=== PATIENT | male | born 1930 | race Caucasian/White ===

== ENCOUNTER 2019-01-21 21:52 | Emergency (ER) | payer MEDICARE ==
[~2019-01-21] VITALS: Ht 188 cm; Wt 87.5 kg
[~2019-01-21 21:52] MED LIST: ALPR1TAB6 PO; GABA-585 PO; HYDR-3164 PO; LORA-781 PO; NAPR-514 PO; NORT25CA PO; PARO30TA3 PO; PRIM50TA PO; TAMS0.4C2 PO
--- NOTE | 2019-01-21 22:30 | PHYS DOC ---
Past Medical History Past Medical History: Anxiety, Arthritis, Constipation, Depression, Hypertension, Other Additional Past Medical Histor: CHRONIC PAIN, ATRIAL FLUTTER, INSOMNIA Past Surgical History: Knee Replacement, Other Additional Past Surgical Histo: BILATERAL SHOULDER, R FEMUR Alcohol Use: None Drug Use: None Adult General Chief Complaint Chief Complaint: MECHANICAL FALL HPI HPI Patient is an 88 year old male with a history of 4 mechanical falls resulting in fractures in the past 4-5 months, who presents to the ED after feeling a pop in his hip earlier today after standing from a seated position with subsequent sharp hip pain. He reports falling backward on to his buttocks/back one week ago , but has been ambulatory since then. He denies any head trauma or LOC from this fall. His pain is currently a 4/10 in severity and does not radiate. He describes it as a sharp, stinging pain. He denies any sensory or motor deficits. He uses a walker to ambulate. He denies any nausea, vomiting, fever, or chills. Review of Systems Review of Systems Constitutional: Denies fever or chills [] Eyes: Denies change in visual acuity, redness, or eye pain [] HENT: Denies nasal congestion or sore throat [] Respiratory: Denies cough or shortness of breath [] Cardiovascular: Denies any chest pain or palpitations. [] GI: Denies abdominal pain, nausea, vomiting, or diarrhea [] : Reports Burning on urination for about a month. Denies Hematuria. [] Musculoskeletal: Right Hip Pain. [] Integument: Denies rash or skin lesions [] Neurologic: Denies headache, focal weakness or sensory changes [] Complete systems were reviewed and found to be within normal limits, except as documented in this note. Current Medications Current Medications Current Medications Medications (Trade) Dose Ordered Sig/Awilda Start Time Stop Time Status Last Admin Dose Admin Cyclobenzaprine HCl (Flexeril) 10 mg 1X ONCE 01/21/19 23:45 01/21/19 23:46 DC 01/21/19 23:49 10 MG Allergies Allergies Allergies Coded Allergies Type Severity Reaction Last Updated Verified pregabalin Allergy Intermediate 04/21/16 Yes Physical Exam Physical Exam Constitutional: no acute distress, non-toxic appearance. [] HENT: Normocephalic, atraumatic, bilateral external ears normal, oropharynx moist, no oral exudates, nose normal. [] Eyes: Conjunctiva normal, no discharge. [] Neck: Normal range of motion, no tenderness, supple, no stridor. [] Cardiovascular: Heart rate regular rhythm, no murmur [] Lungs & Thorax: Bilateral breath sounds clear to auscultation [] Abdomen: soft, no tenderness, no masses, no pulsatile masses. [] Skin: Warm, dry, no erythema, no rash. [] Extremities: Mild TTP of Right Hip, no cyanosis, no edema. [] Neurologic: Alert and oriented X 3, normal motor function, normal sensory function, no focal deficits noted. [] Psychologic: Affect normal, judgement normal, mood normal. [] Current Patient Data Vital Signs Vital Signs Date Time Temp Pulse Resp B/P (MAP) Pulse Ox O2 Delivery O2 Flow Rate FiO2 01/21/19 23:53 71 18 95 01/21/19 21:52 97.4 139/77 (97) Room Air 97.4 Lab Values Laboratory Tests Test 01/21/19 23:00 White Blood Count 4.6 x10^3/uL (4.0-11.0) Red Blood Count 4.13 x10^6/uL (4.30-5.70) L Hemoglobin 13.2 g/dL (13.0-17.5) Hematocrit 40.1 % (39.0-53.0) Mean Corpuscular Volume 97 fL (79-100) Mean Corpuscular Hemoglobin 32 pg (25-35) Mean Corpuscular Hemoglobin Concent 33 g/dL (31-37) Red Cell Distribution Width 15.6 % (11.5-14.5) H Platelet Count 173 x10^3/uL (140-400) Neutrophils (%) (Auto) 39 % (31-73) Lymphocytes (%) (Auto) 45 % (24-48) Monocytes (%) (Auto) 11 % (0-9) H Eosinophils (%) (Auto) 5 % (0-3) H Basophils (%) (Auto) 1 % (0-3) Neutrophils # (Auto) 1.8 x10^3uL (1.8-7.7) Lymphocytes # (Auto) 2.1 x10^3/uL (1.0-4.8) Monocytes # (Auto) 0.5 x10^3/uL (0.0-1.1) Eosinophils # (Auto) 0.2 x10^3/uL (0.0-0.7) Basophils # (Auto) 0.0 x10^3/uL (0.0-0.2) Prothrombin Time 13.3 SEC (11.7-14.0) Prothrombin Time INR 1.0 (0.8-1.1) PTT 29 SEC (24-38) Sodium Level 141 mmol/L (136-145) Potassium Level 3.7 mmol/L (3.5-5.1) Chloride Level 105 mmol/L (98-107) Carbon Dioxide Level 25 mmol/L (21-32) Anion Gap 11 (6-14) Blood Urea Nitrogen 17 mg/dL (8-26) Creatinine 1.1 mg/dL (0.7-1.3) Estimated GFR (Cockcroft-Gault) 63.5 BUN/Creatinine Ratio 15 (6-20) Glucose Level 78 mg/dL (70-99) Calcium Level 8.1 mg/dL (8.5-10.1) L Magnesium Level 1.7 mg/dL (1.8-2.4) L Total Bilirubin 0.2 mg/dL (0.2-1.0) Aspartate Amino Transferase (AST) 23 U/L (15-37) Alanine Aminotransferase (ALT) 15 U/L (16-63) L Alkaline Phosphatase 175 U/L (46-116) H Creatine Kinase 57 U/L (39-308) Creatine Kinase MB (Mass) 1.3 ng/mL (0.0-3.6) Creatine Kinase MB Relative Index % (0-4) Troponin I Quantitative < 0.017 ng/mL (0.000-0.055) Total Protein 6.2 g/dL (6.4-8.2) L Albumin 3.0 g/dL (3.4-5.0) L Albumin/Globulin Ratio 0.9 (1.0-1.7) L Laboratory Tests 01/21/19 23:00 Laboratory Tests 01/21/19 23:00 EKG EKG @2234 NSR at 72bpm, NO ST elevation, Q wave in III Radiology/Procedures Radiology/Procedures PROCEDURE: CHEST AP ONLY EXAM: Chest, single view. HISTORY: Shortness of breath. COMPARISON: 04/21/2016 FINDINGS: A frontal view of the chest is obtained. There is no infiltrate, pleural effusion or pneumothorax. The heart is normal in size. There are multiple healed rib fractures. There are fixation screws within the right scapula. There are few small bone islands. There is a chronic nonunited fracture involving the distal left clavicle. There is cervical spinal fusion instrumentation. There are calcified granulomas. IMPRESSION: No acute pulmonary finding. Electronically signed by: Kelly Gar MD (01/21/2019 10:55 PM) [facility] PROCEDURE: HIP RIGHT 2V WITH PELVIS EXAM: Right hip and pelvis, 3 views. HISTORY: Fall. Pain. COMPARISON: 11/29/2018 FINDINGS: A frontal view the pelvis and 2 views of the right hip are obtained. There is internal fixation of a right femoral intertrochanteric fracture. There is a chronic mild displaced fracture fragment involving the right iliac bone. No new fracture is seen. There is mild left greater than right hip osteoarthritis. There is degenerative change at the lower lumbar levels. IMPRESSION: 1. Internal fixation of a proximal right femoral fracture in anatomic alignment. 2. No significant change in a displaced fracture fragment involving the right iliac bone. 3. Mild bilateral hip osteoarthritis and degenerative change involving the lower lumbar spine. Electronically signed by: Kelly Gar MD (01/21/2019 10:56 PM) [facility] Course & Med Decision Making Course & Med Decision Making Mr. Maldonado is an 88 yo male who presents 1 week after a mechanical fall with hip pain and a popping sensation felt today. XR demonstrates an internally fixated proximal femur fracture, along with a non-displaced, old iliac spine fragment. Patient was administered Flexeril. 12-lead EKG showed no acute changes and initial troponin was normal. All other routine labs were not concerning. Surgical intervention was determined to be unnecessary. Patient stable for discharge with outpatient follow-up with PCP. Discussed findings and plan with patient and family, who acknowledge understanding and agreement. Dragon Disclaimer Dragon Disclaimer This electronic medical record was generated, in whole or in part, using a voice recognition dictation system. Departure Departure Impression: Primary Impression: Fall Additional Impressions: Right hip pain Hx of fracture of pelvis Disposition: 01 HOME, SELF-CARE (back to rehab facility) Condition: STABLE Referrals: FLACO GRACE MD (PCP) FANNY RAMOS MD Patient Instructions: Fall Prevention in Hospitals, Hip Pain Scripts Orphenadrine Citrate (ORPHENADRINE CITRATE) 100 Mg Tablet.er 1 TAB PO BID PRN for MUSCLE PAIN, #14 TAB 0 Refills Prov: KRISTINA LUU DO 01/22/19 Problem Qualifiers Primary Impression: Fall Encounter type: initial encounter Qualified Codes: W19.XXXA - Unspecified fall, initial encounter KRISTINA LUU DO Jan 21, 2019 22:30
--- NOTE | 2019-01-21 22:58 | RAD ---
EXAM: Chest, single view. HISTORY: Shortness of breath. COMPARISON: 04/21/2016 FINDINGS: A frontal view of the chest is obtained. There is no infiltrate, pleural effusion or pneumothorax. The heart is normal in size. There are multiple healed rib fractures. There are fixation screws within the right scapula. There are few small bone islands. There is a chronic nonunited fracture involving the distal left clavicle. There is cervical spinal fusion instrumentation. There are calcified granulomas. IMPRESSION: No acute pulmonary finding. Electronically signed by: Kelly Gar MD (01/21/2019 10:55 PM) [facility]
--- NOTE | 2019-01-21 22:59 | RAD ---
EXAM: Right hip and pelvis, 3 views. HISTORY: Fall. Pain. COMPARISON: 11/29/2018 FINDINGS: A frontal view the pelvis and 2 views of the right hip are obtained. There is internal fixation of a right femoral intertrochanteric fracture. There is a chronic mild displaced fracture fragment involving the right iliac bone. No new fracture is seen. There is mild left greater than right hip osteoarthritis. There is degenerative change at the lower lumbar levels. IMPRESSION: 1. Internal fixation of a proximal right femoral fracture in anatomic alignment. 2. No significant change in a displaced fracture fragment involving the right iliac bone. 3. Mild bilateral hip osteoarthritis and degenerative change involving the lower lumbar spine. Electronically signed by: Kelly Gar MD (01/21/2019 10:56 PM) [facility]
[2019-01-21 23:09] LABS: BASO % 1 % (0-3); EOS # 0.2 x10^3/uL (0.0-0.7); EOS % 5 % (0-3); HEMATOCRIT 40.1 % (39.0-53.0); HEMOGLOBIN 13.2 g/dL (13.0-17.5); LYMPH # 2.1 x10^3/uL (1.0-4.8); LYMPH % 45 % (24-48); MEAN CORPUSCULAR HEMOGLOBIN 32 pg (25-35); MEAN CORPUSCULAR HGB CONC 33 g/dL (31-37); MEAN CORPUSCULAR VOLUME 97 fL (79-100); MONO # 0.5 x10^3/uL (0.0-1.1); MONO % 11 % (0-9); NEUT # 1.8 x10^3uL (1.8-7.7); NEUT % 39 % (31-73); PLATELET COUNT 173 x10^3/uL (140-400); RED BLOOD COUNT 4.13 x10^6/uL (4.30-5.70); RED CELL DISTRIBUTION WIDTH 15.6 % (11.5-14.5); WHITE BLOOD COUNT 4.6 x10^3/uL (4.0-11.0)
[2019-01-21 23:19] LABS: PROTHROMBIN TIME PATIENT 13.3 SEC (11.7-14.0)
[2019-01-21 23:27] LABS: CALCIUM 8.1 mg/dL (8.5-10.1); CREATININE 1.1 mg/dL (0.7-1.3); GFR 63.5; POTASSIUM 3.7 mmol/L (3.5-5.1)
[2019-01-21 23:33] LABS: ALBUMIN/GLOBULIN RATIO 0.9 (1.0-1.7); MAGNESIUM 1.7 mg/dL (1.8-2.4); TOTAL BILIRUBIN 0.2 mg/dL (0.2-1.0); TOTAL PROTEIN 6.2 g/dL (6.4-8.2)
[2019-01-21 23:41] LABS: CREATINE KINASE 57 U/L (39-308)
[2019-01-21] MEDS ORDERED: CYCLOBENZAPRINE 10 MG TABLET. PO ONE (23:45)
[2019-01-21 23:53] VITALS: BP 139/60
[2019-01-22] MEDS ORDERED: ORPH100T PO (00:03)
--- NOTE | 2019-01-22 10:50 | EKG ---
[facility] [address] [place] [address] Test Date: 2019-01-21 Test Time: 22:34:48 Pat Name: RANJITH HAUSER Department: Room: Gender: M Transcription Coordinator: : 1930 Requested By: KRISTINA LUU Order Number: [id number] Reading MD: Daniel So MD Measurements Intervals [place] Rate: 72 P: 90 W[place]: 232 QRS: 26 QRSD: 88 T: 38 QT: 398 QTc: 437 Interpretive Statements SINUS RHYTHM PROLONGED WY INTERVAL ANTEROSEPTAL INFARCT Electronically Signed On 01-25-2019 10:15:40 COACH OPERATOR by Daniel So MD
[2019-01-28] MEDS ORDERED: ALPR0.5T PO (18:15)
[2019-01-28] MEDS ORDERED: HYDR-2769 PO (18:16)
[2019-01-28] MEDS ORDERED: ALBU2.5V8 INH (18:32)
[2019-01-28] MEDS ORDERED: ASPI-630 PO (18:32)
[2019-01-28] MEDS ORDERED: CHOL10003 PO (18:33)
[2019-01-28] MEDS ORDERED: IPRA4AER IH (18:34)
[2019-01-28] MEDS ORDERED: DOCU100C28 PO (18:35)
[2019-01-28] MEDS ORDERED: FOLI1TAB16 PO (18:36)
[2019-01-28] MEDS ORDERED: PARO30TA45 PO (18:37)
[2019-01-28] MEDS ORDERED: TRAZ-118 PO (18:38)
[2019-01-28] MEDS ORDERED: THIA100T43 PO (18:38)
== END 2019-01-22 00:29 | disposition home or self-care (01) ==
LOC: ER 21:52
DX: M25.551 Pain in right hip (principal); R06.02 Shortness of breath; R30.0 Dysuria; G89.29 Other chronic pain; I10 Essential (primary) hypertension; Z87.81 Personal history of (healed) traumatic fracture; Z91.81 History of falling; Z88.8 Allergy status to other drugs, medicaments and biological substances; X50.9XXA Other and unspecified overexertion or strenuous movements or postures, initial encounter; Y93.89 Activity, other specified; Y92.89 Other specified places as the place of occurrence of the external cause; Y99.8 Other external cause status
CPT/HCPCS: 36415; 71045; 73502; 80053; 81001; 82553; 83735; 84484; 85025; 85610; 85730; 93005; 99284

== ENCOUNTER 2019-01-31 11:36 | Observation (INO) | payer MEDICARE ==
[~2019-01-31] VITALS: Ht 188 cm; Wt 87.5 kg
[2019-01-31] VITALS (9 sets, daily range): BP systolic 145–179; BP diastolic 72–100
[~2019-01-31 11:36] MED LIST changes: +ALBU2.5V8 INH; +ALPR0.5T PO; +ASPI-630 PO; +CHOL10003 PO; +DOCU100C28 PO; +FOLI1TAB16 PO; +HYDR-2769 PO; +HYDROmorphone 2 MG/ML VIAL IV PRN; +IOHEXOL 300 MG/ML 100ML VIAL. ONE; +IPRA4AER IH; +IV RINGERS,LACTATED 1000ML 1,000 ML IV SCH; +LIDOCAINE 1% PF 2 ML VIAL. ID PRN; +MORPHINE SULFATE 2 MG/ML VIAL. IV PRN; +ONDANSETRON PF 4 MG/2 ML VIAL. IV PRN; +ORPH100T PO; +PARO30TA45 PO; +PROCHLORPERAZINE 10 MG/2 ML VIAL. IV PRN; +THIA100T43 PO; +TRAZ-118 PO; +fentaNYL PF VIAL 100 MCG/2 ML VIAL IV PRN
[2019-01-31] MEDS ORDERED: IOHEXOL 300 MG/ML 100ML VIAL. ONE (12:07)
[2019-01-31] MEDS ORDERED: LIDOCAINE 2% JELLY 6ML IN APPLICATOR. ONE (12:08)
[2019-01-31] MEDS ORDERED: LIDOCAINE 2% PF 5 ML VIAL. ONE (13:08)
[2019-01-31] MEDS ORDERED: PROPOFOL 20 ML IV ONE (13:08)
[2019-01-31] MEDS ORDERED: SEVOFLURANE 31 TO 60 MINUTES. IH ONE (13:08)
[2019-01-31] MEDS ORDERED: oxyCODONE/APAP 5/325 1 TAB TABLET PO PRN (14:15)
[2019-01-31] MEDS ORDERED: ONDANSETRON PF 4 MG/2 ML VIAL. IV PRN (14:15)
[2019-01-31] MEDS ORDERED: NALOXONE 0.4 MG/ML VIAL. IV PRN (14:15)
[2019-01-31] MEDS ORDERED: ACETAMINOPHEN 325 MG TABLET. PO PRN (14:15)
[2019-01-31] MEDS ORDERED: diphenhydrAMINE HCL 25 MG CAPSULE PO PRN (14:15)
[2019-01-31] MEDS ORDERED: MORPHINE SULFATE 2 MG/ML VIAL. IV PRN (14:15)
[2019-01-31] MEDS ORDERED: MAGNESIUM HYDROXIDE 2,400 MG/30 ML ORAL.SUSP. PO PRN (14:15)
[2019-01-31] MEDS ORDERED: 0.9 % SODIUM CHLORIDE 10 ML DISP.SYRIN. IV PRN (14:15)
--- NOTE | 2019-01-31 14:29 | PDOC4 ---
OPERATIVE NOTE Date: Date: Jan 31, 2019 Pre-Op Diagnosis: BPH w Bladder stone Post-Op Diagnosis: same Procedure Performed: cysto, laser bladder stone and remove, TURP Surgeon: cornell Anesthesia Type: gen Blood Loss: 50cc Specimans Obtained: bladder stones, prostate chips Findings: lg bladder calc obstructing bilobar prostate gland Complications: none Operative Note: Gen anes, lithotomy pos'n, pt rec'd iv abx Cysto,w 21 Fr cystoscope; lg stone in bladder tx'd w laser to fragment and fragments removed. 24-Fr Resectoscope placed and TURP performed with resectoscope in usual fashion. Numerous calculi were unroofed in the course of resection. It was a fairly small gland. Resection was extended to the proximal edge of the veru. Bleeding was controlled with cautery and chips were removed with the evacuator. Final inspection revealed the fossa to be wide open and hemostatic, the external sphincter intact, and the bladder free of any chips or stones. 22-3-way foly placed after removal of scope. Toussaint irrigated and clear. CBI initiated and pt was then transferred to in good cond Will keep overnight under observation. DAMEON GUARDADO MD Jan 31, 2019 14:29
[2019-01-31] MEDS: OPIUM/BELLADONNA 30/16.2MG SUPP.RECT. PR SCH ×2 (15:51→22:00)
[2019-01-31] MEDS: POTASSIUM CL 20MEQ-0.45% NACL 1,000 ML IV SCH (16:19)
[2019-01-31] MEDS: HYDROcodone/APAP 5/325MG 1 TAB TABLET PO PRN ×2 (16:28→20:32)
[2019-01-31] MEDS: SENNOSIDES/DOCUSATE 8.6/50MG TABLET. PO SCH (20:31)
[2019-01-31] MEDS ORDERED: traZODone 50 MG TABLET. PO PRN (21:15)
[2019-01-31] MEDS ORDERED: ALPRAZolam 0.5 MG TABLET PO PRN (21:15)
[2019-02-01] MEDS: POTASSIUM CL 20MEQ-0.45% NACL 1,000 ML IV SCH ×2 (01:46→10:38)
[2019-02-01] MEDS: HYDROcodone/APAP 5/325MG 1 TAB TABLET PO PRN (01:51)
[2019-02-01 02:00] VITALS: BP 177/94
[2019-02-01 04:13] LABS: BASO % 0 % (0-3); EOS % 1 % (0-3); HEMATOCRIT 36.9 % (39.0-53.0); HEMOGLOBIN 12.2 g/dL (13.0-17.5); LYMPH # 1.6 x10^3/uL (1.0-4.8); LYMPH % 29 % (24-48); MEAN CORPUSCULAR HEMOGLOBIN 33 pg (25-35); MEAN CORPUSCULAR HGB CONC 33 g/dL (31-37); MEAN CORPUSCULAR VOLUME 98 fL (79-100); MONO # 0.7 x10^3/uL (0.0-1.1); MONO % 12 % (0-9); NEUT # 3.4 x10^3uL (1.8-7.7); NEUT % 59 % (31-73); PLATELET COUNT 192 x10^3/uL (140-400); RED BLOOD COUNT 3.75 x10^6/uL (4.30-5.70); RED CELL DISTRIBUTION WIDTH 15.6 % (11.5-14.5); WHITE BLOOD COUNT 5.7 x10^3/uL (4.0-11.0)
[2019-02-01 04:52] LABS: CREATININE 1.2 mg/dL (0.7-1.3); GFR 57.4; POTASSIUM 4.3 mmol/L (3.5-5.1)
[2019-02-01] MEDS: OPIUM/BELLADONNA 30/16.2MG SUPP.RECT. PR SCH ×3 (06:00→15:04)
[2019-02-01 07:00] VITALS: BP 174/96
[2019-02-01] MEDS: SENNOSIDES/DOCUSATE 8.6/50MG TABLET. PO SCH (08:44)
--- NOTE | 2019-02-01 09:02 | PDOC ---
SUBJECTIVE Subjective Pt doing well this am. Minimal pain and very mild catheter discomfort. His BP is high, and so a consult to med team has been placed. Nurse had slowed down CBI this am because drainage looked so clear. OBJECTIVE Objective Physical Exam: General appearance: Alert and Oriented Head: Normocephalic, without obvious abnormality Eyes: conjunctivae/corneas clear. PERRL, EOM's intact. Fundi benign Back: no CVA pain bilaterally Lungs: Regular respirations, no distress Abdomen: soft, non-tender. . No masses, no organomegaly Pelvic: Circ phallus with [address] draining clear urine. CBI running at low speed, set up functioning well. Vital Signs Vital Signs Date Time Temp Pulse Resp B/P (MAP) Pulse Ox O2 Delivery O2 Flow Rate FiO2 02/01/19 08:51 Room Air 02/01/19 07:00 98.2 66 19 174/96 (122) 96 Room Air 98.2 02/01/19 02:51 20 Room Air 02/01/19 02:00 98.1 64 18 177/94 (121) 93 Room Air 98.1 02/01/19 01:51 20 Room Air 01/31/19 23:00 20 Room Air 01/31/19 23:00 98.6 71 18 170/94 (119) 93 Room Air 98.6 01/31/19 22:00 20 Room Air 01/31/19 20:32 20 Room Air 01/31/19 19:50 Room Air 01/31/19 19:00 98.6 90 18 148/76 (100) 92 Room Air 98.6 01/31/19 18:00 99 16 153/81 (105) 91 Room Air 01/31/19 17:30 98 145/72 (96) 91 Room Air 01/31/19 17:00 94 177/100 (125) 94 Room Air 01/31/19 16:45 83 173/92 (119) 95 Room Air 01/31/19 16:30 84 176/92 (120) 94 Room Air 01/31/19 16:28 Room Air 01/31/19 16:15 85 179/94 (122) 93 Room Air 01/31/19 16:00 98.5 86 18 155/92 (113) 94 Room Air 98.5 01/31/19 16:00 Room Air 01/31/19 15:51 20 99 01/31/19 15:45 98.0 84 20 155/78 98 Room Air 98.0 01/31/19 15:30 82 20 159/82 93 Room Air 01/31/19 15:15 83 20 166/87 94 Room Air 01/31/19 15:00 82 20 164/83 94 Room Air 01/31/19 14:45 83 20 161/83 94 Room Air 01/31/19 14:30 85 20 155/78 97 Room Air 01/31/19 14:15 97.8 86 20 157/79 100 Simple Mask 10 97.8 01/31/19 14:15 Mask 10 01/31/19 12:19 97.6 107 22 157/99 96 Room Air 97.6 01/31/19 12:12 97.6 107 22 96 97.6 I & O Intake and Output 02/01/19 07:00 Intake Total 3310 ml Output Total 7400 ml Balance -4090 ml Intake Oral 360 ml IV Total 1750 ml Other 1200 ml Output Urine Total 7400 ml PHYSICAL EXAM Physical Exam Physical Exam: General appearance: Alert and Oriented Head: Normocephalic, without obvious abnormality Eyes: conjunctivae/corneas clear. PERRL, EOM's intact. Fundi benign Back: no CVA pain bilaterally Lungs: Regular respirations, no distress Abdomen: soft, non-tender. . No masses, no organomegaly Pelvic: Circ phallus with [address] draining clear urine. CBI running at low speed, set up functioning well. ASSESSMENT/PLAN Assessment/Plan Medical team consult put in for high BP. For the meantime, IVF have stopped and patient is eating and drinking well Will stop CBI momentarily to see if needed any longer and re-evaluate in a little bit. COMMENT Lab Laboratory Tests Test 02/01/19 03:10 White Blood Count 5.7 x10^3/uL (4.0-11.0) Red Blood Count 3.75 x10^6/uL (4.30-5.70) Hemoglobin 12.2 g/dL (13.0-17.5) Hematocrit 36.9 % (39.0-53.0) Mean Corpuscular Volume 98 fL (79-100) Mean Corpuscular Hemoglobin 33 pg (25-35) Mean Corpuscular Hemoglobin Concent 33 g/dL (31-37) Red Cell Distribution Width 15.6 % (11.5-14.5) Platelet Count 192 x10^3/uL (140-400) Neutrophils (%) (Auto) 59 % (31-73) Lymphocytes (%) (Auto) 29 % (24-48) Monocytes (%) (Auto) 12 % (0-9) Eosinophils (%) (Auto) 1 % (0-3) Basophils (%) (Auto) 0 % (0-3) Neutrophils # (Auto) 3.4 x10^3uL (1.8-7.7) Lymphocytes # (Auto) 1.6 x10^3/uL (1.0-4.8) Monocytes # (Auto) 0.7 x10^3/uL (0.0-1.1) Eosinophils # (Auto) 0.0 x10^3/uL (0.0-0.7) Basophils # (Auto) 0.0 x10^3/uL (0.0-0.2) Sodium Level 138 mmol/L (136-145) Potassium Level 4.3 mmol/L (3.5-5.1) Chloride Level 102 mmol/L (98-107) Carbon Dioxide Level 27 mmol/L (21-32) Anion Gap 9 (6-14) Blood Urea Nitrogen 20 mg/dL (8-26) Creatinine 1.2 mg/dL (0.7-1.3) Estimated GFR (Cockcroft-Gault) 57.4 Glucose Level 84 mg/dL (70-99) Calcium Level 8.0 mg/dL (8.5-10.1) GUADALUPE PEREZ APRN Feb 01, 2019 09:02
--- NOTE | 2019-02-01 09:23 | NUR ---
SW following. Discussed with RN. Pt is from [facility]. IRENE will continue to follow for discharge planning.
--- NOTE | 2019-02-01 10:59 | DISCH ---
DISCHARGE INSTRUCTIONS Condition on Discharge Condition on Discharge: Stable Activity After Discharge Activity Instructions for Disc: Activity as tolerated, Avoid exertion Other activity instructions: no riding or driving for 2-3 wks Lifting Instructions after Dis: No heavy lifting, Do not lift >10 pounds Exercise Instruction after Dis: Walk 10 min, 3 x per day, Progress as tolerated Driving Instructions after Dis: Do not drive, No driving for 2 weeks Weight Bearing Status after Di: No restrictions, As tolerated Diet after Discharge Diet after Discharge: Regular Diet Texture: Regular Liquid Texture: Thin Liquid Swallowing Supervision: None needed Wound Incision Care Wound/Incision Care: No wound care needed Contacting the DRJaymie after DC Call your doctor for: Fever greater than 100 Follow-Up Follow up with: Dr Redman 2 - 3 wks Treatment/Equipment after DC Adaptive Equipment Issued: None, Front wheeled DAMEON Stubbs MD Feb 01, 2019 10:59
[2019-02-01 11:00] VITALS: BP 144/83
--- NOTE | 2019-02-01 14:25 | NUR ---
SS following up with discharge planning. Discharge orders received. SS phoned and faxed clinical to [facility], ; fax [phone]. [facility] 1700 and 1730 [facility] [employer], . [facility] Pt, pt's RN, and pt's daughter, Michelle Tejada, , notified.
[2019-02-01] MEDS ORDERED: NON FORMULARY ITEM (Orphenadrine Citrate 1 TAB) PO PRN (14:30)
[2019-02-01] MEDS ORDERED: HYDROcodone/APAP 10/325 1 TAB TABLET PO PRN (14:30)
[2019-02-01 15:00] VITALS: BP 169/94
[2019-02-01] MEDS ORDERED: TAMSULOSIN 0.4 MG CAP.ER.24H. PO SCH (15:00)
[2019-02-01] MEDS ORDERED: PRIMIDONE 50 MG TABLET PO SCH (15:00)
[2019-02-01] MEDS ORDERED: CHOLECALCIFEROL (VITAMIN D3) 1,000 UNIT TABLET PO SCH (15:00)
[2019-02-01] MEDS ORDERED: FOLIC ACID 1 MG TABLET. PO SCH (15:00)
[2019-02-01] MEDS ORDERED: ASPIRIN CHEWABLE 81 MG TABLET. PO SCH (15:00)
[2019-02-01] MEDS ORDERED: LISINOPRIL 20 MG TABLET PO SCH (15:00)
[2019-02-01] MEDS ORDERED: ALBUTEROL SULFATE 2.5 MG/3 ML NEBU. NEB PRN (15:00)
[2019-02-01] MEDS ORDERED: CETIRIZINE HCL 10 MG TABLET. PO SCH (15:00)
[2019-02-01] MEDS ORDERED: THIAMINE 100 MG TABLET. PO SCH (15:30)
--- NOTE | 2019-02-01 15:39 | NUR ---
Wound Care Wound care consult for mutiple abrasions. Pt has skin tear to right lateral elbow, bilateral knees are scabbed/resolved. Skin prep applied to scabs, Xeroform, 4x4 and Kerlix applied to skin tear. No other wounds noted on full skin inspection. WC will continue to follow for possible changes. Pt educated on PU prevention.
--- NOTE | 2019-02-01 16:08 | PATHOLOGY ---
[facility] Accession Number: [id number] . 01 Material submitted: . PART A: BLADDER STONES PART B: PROSTATE TISSUE . 01 Clinical history: . Bladder stone . 02 Diagnosis: A. Calculi, urinary bladder, removal: - Calculi/ urolithiasis (gross diagnosis only). - Specimen is not forwarded for stone analysis, as per requisition request for "gross only". . B. Prostate tissue, transurethral resection: - Nodular prostatic glandular and fibromuscular hyperplasia. - Chronic inflammation of prostate, focal. - Chronic follicular prostatic urethritis, focal. ([facility] 02/01/2019) LBQ/02/01/2019 . 02 Comment: There is no evidence of malignancy. ([facility] 02/01/2019) . 02 Electronically signed: . Phill Coleman MD, Pathologist NPI- [id number] . 01 Gross description: . A. The specimen is fresh, labeled "Tee Harvinder, bladder stones for gross only", are multiple irregular fragments of dark brown to black calculi and its fragments measuring 1.5 x 1.0 x 0.5 cm in aggregate. Gross only. . B. The specimen is received in formalin, labeled "Tee, Harvinder, prostate tissue", are multiple villanueva, rubbery, irregular fragments admix with multiple dark brown calculi and its fragments weighing 3 g and measuring 2.5 x 2.3 x 0.7 cm in aggregate. The specimen is entirely submitted in B1-B3. ([facility]; 01/31/2019) SHS/SHS . 02 Pathologist provided ICD-10: N41.1, N34.2 . 02 CPT . 396751, 038740 Specimen Comment: A courtesy copy of this report has been sent to Specimen Comment: [phone], . Specimen Comment: Report sent to / DR GRACE Performed at: [address] [facility], [place] [id number] MD Kyle Miramontes MD Phone: [phone] Performed at: 02 [facility] [address] [place], [place] [id number] MD Phill Coleman MD Phone: [phone]
--- NOTE | 2019-02-01 17:40 | NUR ---
Pt discharged back to [facility] by w/c transport provided by receiving facility. This nurse spoke with Pt's daughter over the phone to inform her of f/u appointment and new medication script (Lortab). Six bottle routine with little change in between but no blood clots present, urine continues being a light omer, clear color. Pt denies pain or discomfort upon discharge and is able to void with no difficulty. No other changes from previous assessment.
[2019-02-01] MEDS ORDERED: NORTRIPTYLINE 25 MG CAPSULE PO SCH (21:00)
[2019-02-01] MEDS ORDERED: PARoxetine 10 MG TABLET PO SCH (21:00)
[2019-02-01] MEDS ORDERED: GABAPENTIN 100 MG CAPSULE. PO SCH (21:00)
[2019-02-01] MEDS ORDERED: ALPRAZolam 0.5 MG TABLET PO SCH (21:00)
[2019-02-01] MEDS ORDERED: DOCUSATE SODIUM 100 MG CAPSULE. PO SCH (21:00)
[2019-02-01] MEDS ORDERED: traZODone 50 MG TABLET. PO SCH (21:00)
== END 2019-02-01 17:40 | disposition short-term general hospital (02) ==
LOC: SURG 11:36 → 4 NORTH 15:10
PROVIDERS: ADMIT Urology; ATTEND Urology
DX: N40.0 Benign prostatic hyperplasia without lower urinary tract symptoms (principal); N21.0 Calculus in bladder; N34.2 Other urethritis; N41.9 Inflammatory disease of prostate, unspecified
CPT/HCPCS: 36415; 52601; 80048; 82962; 85025; 88300; 88305; A7015; G0378; G0379; J0696; J2001; J2704; J7120; Q9967; C1769

== ENCOUNTER 2019-08-08 11:21 | Emergency (ER) | payer MEDICARE ==
[~2019-08-08] VITALS: Ht 188 cm; Wt 87.5 kg
[~2019-08-08 11:21] MED LIST changes: -HYDROmorphone 2 MG/ML VIAL IV PRN; -IOHEXOL 300 MG/ML 100ML VIAL. ONE; -IV RINGERS,LACTATED 1000ML 1,000 ML IV SCH; -LIDOCAINE 1% PF 2 ML VIAL. ID PRN; -MORPHINE SULFATE 2 MG/ML VIAL. IV PRN; -ONDANSETRON PF 4 MG/2 ML VIAL. IV PRN; -PROCHLORPERAZINE 10 MG/2 ML VIAL. IV PRN; -fentaNYL PF VIAL 100 MCG/2 ML VIAL IV PRN
[2019-08-08 13:46] VITALS: BP 165/81
[2019-08-08] MEDS ORDERED: IBUPROFEN 200 MG TABLET. PO ONE (14:00)
--- NOTE | 2019-08-08 14:10 | PHYS DOC ---
Past Medical History Past Medical History: Anxiety, Arthritis, Constipation, Depression, Hypertension, Other Additional Past Medical Histor: CHRONIC PAIN, ATRIAL FLUTTER, INSOMNIA Past Surgical History: Knee Replacement, Other Additional Past Surgical Histo: BILATERAL SHOULDER, R FEMUR Alcohol Use: None Drug Use: None Adult General Chief Complaint Chief Complaint: WRIST PAIN HPI HPI Patient is a 89 year old male who presents with right wrist pain that he awoke with this morning. Denies injury. Patient states he can not move it due to pain. Rates his pain is a 10/10. Review of Systems Review of Systems Constitutional: Denies fever or chills [] Musculoskeletal: Denies back pain. Right wrist joint pain with 1-2+ edema [] Integument: Denies rash or skin lesions [] Neurologic: Denies headache, focal weakness or sensory changes [] All other systems were reviewed and found to be within normal limits, except as documented in this note. Current Medications Current Medications Current Medications Medications (Trade) Dose Ordered Sig/Awilda Start Time Stop Time Status Last Admin Dose Admin Ibuprofen (Motrin) 600 mg 1X ONCE 08/08/19 14:00 08/08/19 14:05 DC 08/08/19 14:07 600 MG Allergies Allergies Allergies Coded Allergies Type Severity Reaction Last Updated Verified pregabalin Allergy Intermediate 01/31/19 Yes Physical Exam Physical Exam Constitutional: Well developed, well nourished, no acute distress, non-toxic appearance. [] Skin: Warm, dry, no erythema, no rash. [] Extremities: Right wrist tenderness, no cyanosis, no clubbing, Right wrist ROM not intact, Right wrist 1-2+edema. [] Neurologic: Alert and oriented X 3, normal motor function, normal sensory function, no focal deficits noted. [] Psychologic: Affect normal, judgement normal, mood normal. [] Current Patient Data Vital Signs Vital Signs Date Time Temp Pulse Resp B/P (MAP) Pulse Ox O2 Delivery O2 Flow Rate FiO2 08/08/19 13:46 98.7 57 18 165/81 (109) 96 Room Air 98.7 Lab Values Laboratory Tests Test 08/08/19 14:20 White Blood Count 7.1 x10^3/uL (4.0-11.0) Red Blood Count 4.47 x10^6/uL (4.30-5.70) Hemoglobin 14.2 g/dL (13.0-17.5) Hematocrit 40.9 % (39.0-53.0) Mean Corpuscular Volume 91 fL (79-100) Mean Corpuscular Hemoglobin 32 pg (25-35) Mean Corpuscular Hemoglobin Concent 35 g/dL (31-37) Red Cell Distribution Width 13.0 % (11.5-14.5) Platelet Count 156 x10^3/uL (140-400) Neutrophils (%) (Auto) 68 % (31-73) Lymphocytes (%) (Auto) 21 % (24-48) L Monocytes (%) (Auto) 10 % (0-9) H Eosinophils (%) (Auto) 0 % (0-3) Basophils (%) (Auto) 1 % (0-3) Neutrophils # (Auto) 4.8 x10^3/uL (1.8-7.7) Lymphocytes # (Auto) 1.5 x10^3/uL (1.0-4.8) Monocytes # (Auto) 0.7 x10^3/uL (0.0-1.1) Eosinophils # (Auto) 0.0 x10^3/uL (0.0-0.7) Basophils # (Auto) 0.1 x10^3/uL (0.0-0.2) Sodium Level 141 mmol/L (136-145) Potassium Level 4.1 mmol/L (3.5-5.1) Chloride Level 104 mmol/L (98-107) Carbon Dioxide Level 29 mmol/L (21-32) Anion Gap 8 (6-14) Blood Urea Nitrogen 15 mg/dL (8-26) Creatinine 1.2 mg/dL (0.7-1.3) Estimated GFR (Cockcroft-Gault) 57.3 BUN/Creatinine Ratio 13 (6-20) Glucose Level 108 mg/dL (70-99) H Uric Acid 5.8 mg/dL (3.5-7.2) Calcium Level 9.6 mg/dL (8.5-10.1) Total Bilirubin 0.9 mg/dL (0.2-1.0) Aspartate Amino Transferase (AST) 15 U/L (15-37) Alanine Aminotransferase (ALT) 10 U/L (16-63) L Alkaline Phosphatase 109 U/L (46-116) Total Protein 7.5 g/dL (6.4-8.2) Albumin 3.8 g/dL (3.4-5.0) Albumin/Globulin Ratio 1.0 (1.0-1.7) Laboratory Tests 08/08/19 14:20 Laboratory Tests 08/08/19 14:20 EKG EKG [] Radiology/Procedures Radiology/Procedures [] Impressions: [facility] [id number] [place] [address] IMAGING REPORT Signed PATIENT: RANJITH HAUSER EACCOUNT: [id number] : 1930 LOCATION: ER AGE: 89 SEX: M EXAM STATUS: REG ER ORD. PHYSICIAN: KRISTINA VELÁSQUEZ APRN REASON: pain, swelling - unable to remove ring due to swelling PROCEDURE: HAND RIGHT 3V Examination: 3 views of the right hand and right wrist HISTORY: History of right wrist pain, swelling COMPARISON: None available. FINDINGS: Severe joint space loss identified in the distal radioulnar joint. Chondrocalcinosis of the triangle fibrocartilage identified. Probable small erosion identified in the distal ulna. Moderate joint space loss identified in the first carpal metacarpal joint. The alignment of the carpal bones grossly appears unremarkable. Mild joint space loss identified in the metacarpophalangeal joints, interphalangeal joints. IMPRESSION: 1. 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 Chondrocalcinosis of the triangular fibrocartilage. Correlate for CPPD arthropathy. Electronically signed by: Cirilo Voss MD (08/08/2019 2:16 PM) [facility] DICTATED and SIGNED BY: CIRILO VOSS MD DATE: 08/08/19 1416 Course & Med Decision Making Course & Med Decision Making Patient is a 89 year old male who presents with right wrist pain that he awoke with this morning. Denies injury. Patient states he can not move it due to pain. Rates his pain is a 10/10. Alert and oriented. Right wrist is 1-2+ swollen. Generalized tenderness with palpation but patient states the pain is worse on the dorsal ulnar side of the wrist. Denies numbness or tingling, changes in skin color, or coolness of the extremity. Skin pink, warm and dry. The wrist does not feel hot and is not red. Radial pulse strong and present. Cap refill less than 3 seconds. Alert and oriented. Xray shows 1. 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 Chondrocalcinosis of the triangular fibrocartilage. Correlate for CPPD arthropathy. Patient to follow up with primary care provider. Take Tylenol for pain. Dragon Disclaimer Dragon Disclaimer This electronic medical record was generated, in whole or in part, using a voice recognition dictation system. Departure Departure Impression: Primary Impression: Arthritis Disposition: 01 HOME, SELF-CARE Condition: STABLE Referrals: FLACO GRACE MD (PCP) Patient Instructions: Arthritis, Degenerative-Brief Additional Instructions: Follow up with primary care physician. Scripts Acetaminophen (ACETAMINOPHEN) 500 Mg Tablet 1 TAB PO Q6HRS, #60 TAB Prov: KRISTINA VELÁSQUEZ APRN 08/08/19 KRISTINA VELÁSQUEZ APRN Aug 08, 2019 14:10
--- NOTE | 2019-08-08 14:19 | RAD ---
Examination: 3 views of the right hand and right wrist HISTORY: History of right wrist pain, swelling COMPARISON: None available. FINDINGS: Severe joint space loss identified in the distal radioulnar joint. Chondrocalcinosis of the triangle fibrocartilage identified. Probable small erosion identified in the distal ulna. Moderate joint space loss identified in the first carpal metacarpal joint. The alignment of the carpal bones grossly appears unremarkable. Mild joint space loss identified in the metacarpophalangeal joints, interphalangeal joints. IMPRESSION: 1. 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 Chondrocalcinosis of the triangular fibrocartilage. Correlate for CPPD arthropathy. Electronically signed by: Cirilo Voss MD (08/08/2019 2:16 PM) [place] [id number]
[2019-08-08 14:41] LABS: BASO # 0.1 x10^3/uL (0.0-0.2); BASO % 1 % (0-3); EOS % 0 % (0-3); HEMATOCRIT 40.9 % (39.0-53.0); HEMOGLOBIN 14.2 g/dL (13.0-17.5); LYMPH # 1.5 x10^3/uL (1.0-4.8); LYMPH % 21 % (24-48); MEAN CORPUSCULAR HEMOGLOBIN 32 pg (25-35); MEAN CORPUSCULAR HGB CONC 35 g/dL (31-37); MEAN CORPUSCULAR VOLUME 91 fL (79-100); MONO # 0.7 x10^3/uL (0.0-1.1); MONO % 10 % (0-9); NEUT # 4.8 x10^3/uL (1.8-7.7); NEUT % 68 % (31-73); PLATELET COUNT 156 x10^3/uL (140-400); RED BLOOD COUNT 4.47 x10^6/uL (4.30-5.70); WHITE BLOOD COUNT 7.1 x10^3/uL (4.0-11.0)
[2019-08-08 14:49] LABS: CALCIUM 9.6 mg/dL (8.5-10.1); CREATININE 1.2 mg/dL (0.7-1.3); GFR 57.3; POTASSIUM 4.1 mmol/L (3.5-5.1)
[2019-08-08 14:55] LABS: ALBUMIN 3.8 g/dL (3.4-5.0); TOTAL BILIRUBIN 0.9 mg/dL (0.2-1.0); TOTAL PROTEIN 7.5 g/dL (6.4-8.2); URIC ACID 5.8 mg/dL (3.5-7.2)
[2019-08-08] MEDS ORDERED: ACET500T68 PO (15:07)
== END 2019-08-08 15:31 | disposition home or self-care (01) ==
LOC: ER 11:21
DX: M19.031 Primary osteoarthritis, right wrist (principal); I10 Essential (primary) hypertension; G89.29 Other chronic pain; Z88.8 Allergy status to other drugs, medicaments and biological substances
CPT/HCPCS: 36415; 73110; 73130; 80053; 84550; 85025; 99285-25